=== PATIENT | female | born 1950 | race Caucasian/White ===

== ENCOUNTER 2020-10-02 08:10 | Day surgery (SDC) | payer BC, OTHER ==
[~2020-10-02] VITALS: Ht 177.8 cm; Wt 102.1 kg
[~2020-10-02 08:10] MED LIST: BEET ROOT PO; BETA CAROT10000 UNIT PO; BIOIDENTICAL HORMONE PO; FOLIC ACID0.8 MG PO; GARLIC400 MG PO; LOPRESSOR50 PO; MILK THISTLE175 M4 PO; PROTONIX 20 MG20 MG PO; TART CHERRY E1000 MG PO; TURMERIC500 M2 PO; VITAMIN C1000 MG PO; VITAMIN D350 MCG PO; VITAMIN E400 UNI4 PO
[2020-10-02 09:34] VITALS: BP 152/75
[2020-10-02] MEDS ORDERED: APAP W/CODEINE1 TA2 PO (12:04)
[2020-10-02 13:35] VITALS: BP 155/73
--- NOTE | 2020-10-02 15:26 | NUR ---
ASSUMED PT CARE FROM PACU AT 1230. PT IS ALERT & ORIENTED X4. PT HAS IV SITE ON R WRIST 20 GAUGE. PT HAS LAP DENISHA TODAY. PT HAS 4 LAP SITES WITH BANDAIDS. NO C/O OF NAUSEA AND VOMITING. PT HAS ICE PACK. PT AT THE BEDSIDE. PT ON THE BED, BED ON THE LOWEST POSITION, SIDE RAILS UP, CALL LIGHT WITHIN REACH. WILL CONTINUE TO MONITOR PT. FOLLOW POC.
[2020-10-02 15:58] VITALS: BP 155/73
--- NOTE | 2020-10-03 07:24 | EKG ---
[address] [address] ELECTROCARDIOGRAM REPORT Name: THAD SANCHEZ Room #: DEP [facility]#: [id number] Admission: 10/02/20 Attend Phys: Don Gonzalez MD Discharge: 10/02/20 Date of : 48 Report #: [id number] [facility] Test Date: 2020-10-02 Test Time: 09:12:20 Pat Name: THAD SANCHEZ Department: Room: 150 5 Gender: F Flight Attendant Ramp: KENRICK : 1950 Requested By: Don Gonzalez Order Number: [id number] : Travis Aguilar Measurements Intervals [place] Rate: 73 P: 58 PA: 140 QRS: 43 QRSD: 105 T: 49 QT: 397 QTc: 438 Interpretive Statements Sinus rhythm No previous ECG available for comparison Electronically Signed On 10-03-2020 7:24:21 CDT by Travis Aguilar [email or web address] <ELECTRONICALLY SIGNED> By: Travis Aguilar MD, [facility] 10/03/20 0724 1 1 Travis Aguilar MD, FACC /EPI
--- NOTE | 2020-10-04 15:08 | PATH ---
[facility] [place] [address] PATHOLOGY RPT PROCEDURE Name: THAD SANCHEZ Ja Room #: DEP [facility] M.R.#: [id number] Admission: 10/02/20 Date of : 48 Discharge: 10/02/20 Report #: [id number] Path Case #: [id number] [facility] Accession Number: [id number] . 01 Material submitted: . gallbladder - GALLBLADDER . 01 Clinical history: . LAPAROSCOPIC CHOLECYSTECTOMY WITH G . 02 Diagnosis: Gallbladder, cholecystectomy: - Mild chronic cholecystitis. (IUV:álvaro; 10/04/2020) R 10/04/2020 1454 Local . 02 Electronically signed: . Vicki Lutz MD, Pathologist NPI- [id number] . 01 Gross description: . Fixative: Formalin Labeled: Gallbladder Specimen received: A previously opened gallbladder Dimensions: 8.5 x 3.0 x 2.5 cm Serosa: Green bile-stained Lymph node: Not present Mucosa: Velvety green bile-stained Average wall thickness: 0.2-0.4 cm Calculi: No calculi present in the specimen or container Abnormalities: No grossly apparent lesions A1- [employer] Yoke body, fundus, and the cystic duct margin. ([facility]; 10/03/2020) [facility] 10/04/2020 1454 Local . 02 Pathologist provided ICD-10: K81.1 . 02 CPT . 152634 Specimen Comment: A courtesy copy of this report has been sent to [phone] Specimen Comment: [id number] Specimen Comment: Report sent to / DR BELL Performed at: [address] [id number] [address] [address] PATHOLOGY RPT PROCEDURE Name: THAD SANCHEZ Room #: DEP [facility] Mariah#: [id number] Admission: 10/02/20 Date of : 48 Discharge: 10/02/20 Report #: [id number] Path Case #: [id number] MD Joseph Casiano MD Phone: [phone] Performed at: [address] [id number] MD Vicki Lutz MD Phone: [phone]
--- NOTE | 2020-10-07 11:38 | O ---
[facility] [place] [address] OPERATIVE REPORT Name: THAD SANCHEZ Room #: DEP [facility].#: [id number] Admission: 10/02/20 Attend Phys: Don Gonzalez MD Discharge: 10/02/20 Date of : 48 Report #: [id number] THIS REPORT FOR: cc: Min Preston Alan Z. DO Chu, Peter Y. MD ~ DOC #: [id number] Don Gonzalez MD DATE OF SERVICE: 10/02/2020 PREOPERATIVE DIAGNOSES: 1. Cholecystitis, acalculous. 2. Umbilical hernia/incisional hernia. POSTOPERATIVE DIAGNOSES: 1. Cholecystitis, acalculous. 2. Umbilical hernia/incisional hernia. PROCEDURES PERFORMED: 1. Laparoscopic cholecystectomy with cholangiogram. 2. Repair of umbilical/incisional hernia. ANESTHESIA: General. SURGEON: Don Gonzalez MD COMPLICATIONS: None. ESTIMATED BLOOD LOSS: 5 mL. DESCRIPTION OF PROCEDURE: With the patient under general anesthesia, abdomen is prepped and draped in sterile fashion. The patient was given IV antibiotic before surgery. Timeout was performed. The 0.25% Marcaine was used to anesthetize the skin infraumbilically. There is a laparoscopic incision here. There is a hernia at the level of the umbilicus as a result, I believe of the laparoscopic surgery. A 2.5 cm incision was made. There is a fascia defect identified. There is fat that is protruding through. The fat was free from the overlying skin and the fascia edges were then identified both superior and inferiorly. The 0 Vicryl suture placed on the fascia edges for retraction. The peritoneum sac had already opened. The 11 mm trocar was placed without difficulty through the fascia defect and peritoneal defect under visualization. No harm to involving tissue. The 11 mm trocar had to be changed to a balloon trocar to get a proper seal without air leak. The gallbladder was identified. There is a small amount of fatty adhesion to the falciform ligament. Rest of the abdomen is free. A 5 mm trocar was placed in right epigastrium, two 5 mm trocars were placed in the right upper quadrant. Gallbladder is floppy, lifted [facility] [address] [place] [address] OPERATIVE REPORT Name: THAD SANCHEZ Ja Room #: DEP [facility].#: [id number] Admission: 10/02/20 Attend Phys: Don Gonzalez MD Discharge: 10/02/20 Date of : 48 Report #: [id number] over the liver. The gallbladder did appear distended. Proximal part of the gallbladder was identified. The fatty tissue over the cystic duct was dissected free. Peritoneum was dissected free both laterally and medially. The cystic duct was isolated without difficulty. There is some fibrosis over the cystic duct. Cystic duct is normal in size. The cystic duct was isolated to the gallbladder. A clip was placed in the junction of cystic duct to the gallbladder. Opening was made in the cystic duct. Cholangiogram catheter was inserted without difficulty. This was held with a clip. Fluoroscopic cholangiogram was obtained. Common bile duct filled out well. No filling defect. The cholangiogram catheter was identified in the cystic duct. No harm to the common duct was visualized. The cholangiogram catheter was then removed. The proximal cystic duct was then clipped x 2 and then divided. The cystic artery was then identified adjacent to this. The cystic duct artery can be seen coming off the right hepatic artery. The right hepatic artery was preserved. The cystic duct and artery was clipped x 2 proximally, one distally and then divided. Gallbladder was then divided from the liver bed without difficulty. Gallbladder was retrieved through the fascia defect at the umbilicus. Gallbladder was opened off the field. There was significant cholesterolosis identified. A couple of millimeters sized cholesterol deposit was also visualized. Gallbladder was handed off for specimen. The liver bed was checked, hemostasis obtained. Irrigation was aspirated out. CO2 was evacuated. around the hernia defect. This was very good tissue and was brought together primarily with 0 PDS [id number] x 2. Skin was irrigated. Skin was closed with 5-0 PDS. Steri-Strip, Band-Aids applied. The patient was awakened and taken to recovery room, tolerated the procedure well. MD CARLOS Calderon/EDER/CHARLOTTE <ELECTRONICALLY SIGNED> By: Don Gonzalez MD 10/07/20 1138 1118 1226 Don Gonzalez MD /tika
== END 2020-10-02 16:54 | disposition home or self-care (01) ==
LOC: OR 08:10 → TBA 08:10 → OR 08:57 → 4S 13:42 → OR 16:54
PROVIDERS: ATTEND Surgery
DX: K81.1 Chronic cholecystitis (principal); K43.2 Incisional hernia without obstruction or gangrene; I10 Essential (primary) hypertension; J45.909 Unspecified asthma, uncomplicated; K21.9 Gastro-esophageal reflux disease without esophagitis; Z98.890 Other specified postprocedural states; Z79.899 Other long term (current) drug therapy; Z87.891 Personal history of nicotine dependence; Z88.8 Allergy status to other drugs, medicaments and biological substances; Z90.710 Acquired absence of both cervix and uterus; Z90.49 Acquired absence of other specified parts of digestive tract; Z91.041 Radiographic dye allergy status
CPT/HCPCS: 50010; 50101; 50411; 50555; 50558; 51489; 52265; 53065; 53307; 53310; 55245; 55317; 56462; 56525; 56526; 58574; 62110; 62900; 70005